=== PATIENT | female | born 1985 | race Hispanic/Latino ===

== ENCOUNTER → 2019-04-07 | Outpatient (CLI) | payer OTHER, MEDICARE | END | disposition home or self-care (01) | LOC: RAH 11:32 | PROVIDERS: ATTEND Obstetrics & Gynecology | DX: O26.892 Other specified pregnancy related conditions, second trimester (principal); Z3A.17 17 weeks gestation of pregnancy; M79.604 Pain in right leg | CPT/HCPCS: 93971 ==

== ENCOUNTER → 2019-08-13 | Outpatient (CLI) | payer OTHER, MEDICARE | END | disposition home or self-care (01) | LOC: RAH 13:39 | PROVIDERS: ATTEND Obstetrics & Gynecology | DX: M79.604 Pain in right leg (principal) | CPT/HCPCS: 93971 ==

== ENCOUNTER 2019-08-27 08:09 | Inpatient (IN) | payer OTHER, MEDICAID ==
[~2019-08-27] VITALS: Ht 160 cm; Wt 68.0 kg
[2019-08-27] MEDS: LACTATED RINGERS 1000ML 1,000 ML IV SCH ×2 (09:00→10:20)
[2019-08-27] MEDS ORDERED: CEFAZOLIN SODIUM 1 GM VIAL IVP PRN (09:00)
[2019-08-27] MEDS ORDERED: DURAMORPH PF1 MG/ML 10ML AMP IV ONE (09:34)
[2019-08-27] MEDS ORDERED: OXYTOCIN 10 UNIT/1ML 10ML VIAL ONE (09:35)
[2019-08-27 10:28] LABS: MEAN CORPUSCULAR HEMOGLOBIN 31.8 pg (27.0-33.0); MEAN CORPUSCULAR HGB CONC 34.4 g/dL (32.0-36.0); MEAN CORPUSCULAR VOLUME 92.4 fL (79-99); PLATELET COUNT (AUTO) 199 K/uL (130-400); RED BLOOD CELL COUNT(AUTO) 4.22 MIL/uL (4.00-5.50); RED CELL DISTRIBUTION WIDTH 13.2 % (11.0-15.5); WHITE BLOOD COUNT (AUTO) 9.5 K/uL (4.8-10.8)
[2019-08-27] MEDS ORDERED: EPINEPHRINE 1 MG/ML AMPULE ONE (11:59)
[2019-08-27] MEDS ORDERED: CEFAZOLIN SODIUM 1 GM VIAL IVP ONE (12:05)
[2019-08-27] MEDS ORDERED: EPHEDRINE SULFATE 50 MG/ML AMPULE ONE (12:14)
[2019-08-27] MEDS ORDERED: ONDANSETRON HCL 4 MG/2 ML VIAL ONE (12:33)
[2019-08-27] MEDS ORDERED: MIDAZOLAM HCL 1 MG/ML 2ML VIAL ONE (12:34)
[2019-08-27] MEDS ORDERED: SODIUM CHLORIDE 0.9% 10 ML VIAL IVP PRN (13:00)
[2019-08-27] MEDS ORDERED: MEPERIDINE-PF 75 MG/ML SYG IM PRN (13:00)
[2019-08-27] MEDS ORDERED: PROMETHAZINE HCL 25 MG/ML 1ML AMPULE IM PRN (13:00)
[2019-08-27] MEDS ORDERED: OXYTOCIN-LR 20 UNITS/1000 ML 1,000 ML IV PRN (13:00)
[2019-08-27 15:01] VITALS: BP 106/69
[2019-08-27] MEDS ORDERED: ONDANSETRON HCL 4 MG/2 ML VIAL IVP PRN (16:45)
[2019-08-27] MEDS ORDERED: NALOXONE HCL 0.4 MG/1 ML ML IVP PRN ×3 (16:45)
[2019-08-27] MEDS ORDERED: EPHEDRINE SULFATE 50 MG/ML AMPULE IVP PRN (16:45)
[2019-08-27] MEDS ORDERED: DiphenhydrAMINE HCL 50 MG/ML VIAL IVP PRN (16:45)
[2019-08-27 19:11] VITALS: BP 102/65
[2019-08-27 23:08] VITALS: BP 90/50
[2019-08-27] MEDS: DEXTROSE 5 %-0.45 % NACL 1,000 ML IV PRN (23:59)
[2019-08-28 03:07] VITALS: BP 110/53
--- NOTE | 2019-08-28 06:12 | NUR ---
LAURENCE PUENTES, PT. INST TO CALL FOR ASSIST BEFORE GETTING OUT OF BED; VERBALIZED UNDERSTANDING. [facility] DONE BY ERICKSON AND ASSISTED PT TO CHAIR. Addendum: 08/28/19 at 0709 by DINORA PRADO RN RN Amended: Links added.
[2019-08-28 07:08] LABS: HEMATOCRIT 39.4 % (36-48); MEAN CORPUSCULAR HEMOGLOBIN 31.7 pg (27.0-33.0); MEAN CORPUSCULAR VOLUME 93.1 fL (79-99); PLATELET COUNT (AUTO) 176 K/uL (130-400); RED BLOOD CELL COUNT(AUTO) 4.23 MIL/uL (4.00-5.50); RED CELL DISTRIBUTION WIDTH 13.2 % (11.0-15.5); WHITE BLOOD COUNT (AUTO) 13.2 K/uL (4.8-10.8)
[2019-08-28] MEDS ORDERED: HYDROCODONE/ACETAMINOPHEN 5/325 MG TAB PO PRN (07:15)
[2019-08-28] MEDS ORDERED: BISACODYL 10 MG SUPP.RECT RC PRN (07:15)
[2019-08-28] MEDS ORDERED: ACETAMINOPHEN EXTRA STRENGTH 500 MG TABLET PO PRN (07:15)
[2019-08-28] MEDS ORDERED: ACETAMINOPHEN-CODEINE 300/30MG TAB PO PRN (07:15)
[2019-08-28 07:24] VITALS: BP 90/54
[2019-08-28] MEDS ORDERED: DIPH,PERTUSS(ACELL),TET VAC/PF 0.5 ML VIAL IM SCH (07:30)
[2019-08-28] MEDS: DEXTROSE 5 %-0.45 % NACL 1,000 ML IV PRN (07:41)
[2019-08-28 08:10] LABS: HEPATITIS Bs ANTIGEN SCREEN P Negative (Negative)
[2019-08-28] MEDS: SIMETHICONE 80 MG TAB.CHEW PO PRN ×3 (08:43→17:30)
[2019-08-28] MEDS: IBUPROFEN 600 MG TABLET PO PRN ×2 (08:44→14:42)
[2019-08-28] MEDS ORDERED: DOCUSATE SODIUM 100 MG CAP PO SCH (09:00)
--- NOTE | 2019-08-28 09:30 | NUR ---
DR. ANAI MORFIN ROUNDED AND DISCHARGED PATIENT TO HOME. PATIENT TO BE DISCHARGED THIS AFTERNOON.
[2019-08-28 11:00] VITALS: BP 83/42
[2019-08-28 16:10] VITALS: BP 96/60
--- NOTE | 2019-08-28 17:40 | NUR ---
PATIENT WAS GIVEN DISCHARGE INSTRUCTIONS AND VERBALIZED UNDERSTANDING INSTRUCTIONS GIVEN. PATIENT DENIES PAIN AT THIS TIME. DISCHARGE INSTRUCTIONS GIVEN IN [facility].
--- NOTE | 2019-08-28 18:30 | NUR ---
PATIENT WAS TAKEN VIA W/C CARRYING BABY IN ARMS TO FAMILY VEHICLE. PATIENT DENIES PAIN AND HAS REMAINED IN STABLE CONDITION.
== END 2019-08-28 18:30 | disposition home or self-care (01) | DRG 785 ==
LOC: LDH 08:09 → WSH 14:55
PROVIDERS: ADMIT Obstetrics & Gynecology; ATTEND Obstetrics & Gynecology
PROC: 0UL70CZ Occlusion of Bilateral Fallopian Tubes with Extraluminal Device, Open Approach (ICD-10-PCS; 2019-08-27)
PROC: 10D00Z1 Extraction of Products of Conception, Low, Open Approach (ICD-10-PCS; principal; 2019-08-27 12:30)
PROC: 3E0234Z Introduction of Serum, Toxoid and Vaccine into Muscle, Percutaneous Approach (ICD-10-PCS; 2019-08-28)
DX: O34.211 Maternal care for low transverse scar from previous cesarean delivery (principal); Z30.2 Encounter for sterilization; Z37.0 Single live birth; Z23 Encounter for immunization; Z3A.38 38 weeks gestation of pregnancy
CPT/HCPCS: 36415; 59510; 85027; 86592; 86850; 86900; 86901; 87340; 90715; A4344; G0378; J0171; J0690; J2250; J2274; J2405; J2590; J3490; J7120